=== PATIENT | male | born 1965 | race Caucasian/White ===

== ENCOUNTER 2023-10-18 00:28 | Emergency (ER) | payer MEDICAID ==
[~2023-10-18] VITALS: Ht 175.3 cm; Wt 70.0 kg
[2023-10-18 00:45] VITALS: BP 132/76; PULSE 88; RESP 20; TEMP 98.2; O2SAT 99
== END 2023-10-18 08:39 | disposition left against medical advice (07) ==
LOC: ER 00:28
DX: Z53.21 Procedure and treatment not carried out due to patient leaving prior to being seen by health care provider (principal)
CPT/HCPCS: 99281